=== PATIENT | female | born 1975 | race Hispanic/Latino ===

== ENCOUNTER 2022-08-07 16:11 | Emergency (ER) | payer BC ==
[~2022-08-07] VITALS: Ht 154.9 cm; Wt 90.7 kg
[2022-08-07 16:52] LABS: BASOPHILS % (AUTO) 0.3 % (0.0-5.0); HEMATOCRIT 30.9 % (36-48); MEAN CORPUSCULAR HEMOGLOBIN 21.4 pg (27.0-33.0); MEAN CORPUSCULAR HGB CONC 29.4 g/dL (32.0-36.0); MEAN CORPUSCULAR VOLUME 72.5 fL (79-99); MONOCYTES % (AUTO) 4.7 % (3.0-13.0); NEUTROPHILS % (AUTO) 67.5 % (40.0-77.0); PLATELET COUNT (AUTO) 476 K/uL (130-400); RED BLOOD CELL COUNT(AUTO) 4.26 MIL/uL (4.00-5.50); RED CELL DISTRIBUTION WIDTH 19.5 % (11.0-15.5); WHITE BLOOD COUNT (AUTO) 11.5 K/uL (4.8-10.8)
[2022-08-07 17:02] LABS: POTASSIUM 3.9 mmol/L (3.5-5.1)
[2022-08-07 17:10] LABS: ALBUMIN 3.1 g/dL (3.5-5.0); TOTAL PROTEIN, SERUM 7.2 g/dL (6.0-8.3)
[2022-08-07 18:35] VITALS: BP 102/48
== END 2022-08-07 18:59 | disposition home or self-care (01) ==
LOC: EDH 16:11
DX: R55 Syncope and collapse (principal); E11.9 Type 2 diabetes mellitus without complications; E78.00 Pure hypercholesterolemia, unspecified; I10 Essential (primary) hypertension; Z90.49 Acquired absence of other specified parts of digestive tract
CPT/HCPCS: 36415; 71045; 80053; 84484; 85025; 93005